=== PATIENT | male | born 1995 ===

== ENCOUNTER 2022-11-20 08:34 | Outpatient (CLI) | payer OTHER ==
[2022-11-20] MEDS ORDERED: GADOBUTROL 7.5 MMOL/7.5 ML VIAL ONE (08:41)
[2022-11-20] MEDS ORDERED: iohexoL-240 10 ML VIAL IVP ONE ×2 (08:41→10:24)
[2022-11-20] MEDS ORDERED: LIDOCAINE-MPF 1% 5 ML VIAL ONE (08:42)
[2022-11-20] MEDS ORDERED: GADOBUTROL 7.5 MMOL/7.5 ML VIAL IVP ONE (10:22)
[2022-11-20] MEDS ORDERED: LIDOCAINE-MPF 1% 5 ML VIAL SUBQ STA (10:25)
--- NOTE | 2022-11-20 10:54 | XRAY Report ---
PROCEDURE: Arthrogram Needle Placement INDICATIONS: DISLOCATION OF RIGHT SHOULDER FLUOROSCOPY TIME: 000.6 TECHNIQUE: The indications, alternatives, benefits, risks, and complications of the procedure were explained to the patient. Written informed consent was obtained and placed in the chart. The shoulder was examin ed fluoroscopically and a site for needle placement chosen for entry into the glenohumeral joint from an anterior approach. The skin was prepped and draped in the usual fashion, and 1% lidocaine infilt rated from skin down to joint capsule. A spinal needle was inserted into the glenohumeral joint, and a small amount of iodinated contrast media injected to confirm intra-articular placement of the need le tip. This was followed by approximately 12 mL dilute solution of a gadolinium containing MR contr ast agent. The needle was removed and a dressing was applied. The patient was given postprocedural instructions and sent to the MR suite for MR imaging. FINDINGS: A single fluoroscopic spot image demonstrates intra-articular location of injected iodinated contrast . IMPRESSION: Successful fluoroscopically guided administration of dilute Gadolinium solution into the shoulder gertrude murphy for MR arthrogram. Reviewed by: Darren Zaldivar MD on 11/20/2022 10:53 AM PDT Approved by: Darren Zaldivar MD on 11/20/2022 10:53 AM PDT Station ID: [id number]
--- NOTE | 2022-11-20 12:33 | MRI Report ---
PROCEDURE: ARTHROGRAM SHOULDER - RT INDICATIONS: DISLOCATION OF RIGHT SHOULDER TECHNIQUE: After the administration of 12 mL of dilute intra-articular Gadolinium contrast, oblique coronal T1 a nd T2 spin echo with fat saturation, oblique sagittal T1 spin echo with and without fat saturation, o blique sagittal T2 fast spin echo with fat saturation, axial T1 spin echo with fat saturation through the shoulder. COMPARISON: None. FINDINGS: Image quality: Excellent. Rotator cuff: The supraspinatus, infraspinatus, and subscapularis tendons appear intact throughout. No rotator cuff muscle atrophy on sagittal images. Bones and bursae: There is a reverse Hill-Sachs lesion the anteromedial aspect of the humeral head w ith associated subchondral edema, consistent with impaction injury. No acromioclavicular joint degene ration. The acromion demonstrates conventional anatomy, without an os acromiale. Capsule and soft tissues: There is tear of the posterior labrum. The glenohumeral ligaments appear i ntact. The long head of the biceps tendon demonstrates normal location and morphology. The rotator interval appears normal, without fibrosis. The coracohumeral ligament is of normal thickness. No in tra-articular bodies. IMPRESSION: 1. Reversed Hill-Sachs lesion in the anterior medial aspect of the humeral head. 2. Posterior labral tear. Reviewed by: Lake Denney MD on 11/20/2022 12:31 PM PDT Approved by: Lake Denney MD on 11/20/2022 12:31 PM PDT Station ID: [id number]
== END 2022-11-20 08:35 | disposition home or self-care (01) ==
LOC: DI 08:34
PROVIDERS: ATTEND Student in an Organized Health Care Education/Training Program
DX: S42.291A Other displaced fracture of upper end of right humerus, initial encounter for closed fracture (principal); S43.401A Unspecified sprain of right shoulder joint, initial encounter
CPT/HCPCS: 23350; 73222; 77002; A9585; Q9966

== ENCOUNTER 2022-12-03 16:24 | Outpatient (CLI) | payer OTHER ==
--- NOTE | 2022-12-04 09:40 | MRI Report ---
PROCEDURE: KNEE WO - RT INDICATIONS: RIGHT KNEE PAIN TECHNIQUE: Noncontrast sagittal PD fast spin echo and T2 fast spin echo with fat saturation, sagittal 3-D gradie nt sequence with fat saturation; coronal T1 spin echo and PD fast spin echo with fat saturation, and axial PD fast spin echo with fat saturation through the knee. COMPARISON: None. FINDINGS: Image quality: Excellent. Menisci: The medial and lateral menisci demonstrate normal morphology and internal signal. The meni scal root ligaments appear intact. Cruciate ligaments: The anterior and posterior cruciate ligaments appear intact. Medial structures: The medial collateral ligament appears intact. The posterior oblique ligament, s emimembranosus tendon insertions, and oblique popliteal ligament, and meniscocapsular junction appear intact. Visualized portions of the pes anserinus tendons appear normal. No abnormal bursal fluid. Lateral structures: The lateral collateral ligament, long and short heads of the biceps femoris tend on appear intact. The popliteus tendon appears normal; the popliteofibular ligament appears intact. The posterosuperior and anteroinferior popliteomeniscal fascicles appear intact. The arcuate and fa bellofibular ligaments appear intact, around the lateral inferior geniculate artery. Iliotibial band appears normal. Anterior structures: The quadriceps and patellar tendons appear intact. Patellar alignment is tavia l. No femoral trochlear dysplasia or ventral trochlear prominence. No edema in the infrapatellar fa t pad. Bones and cartilage: No bone marrow contusions or fractures. The cartilage of the medial and latera l femorotibial compartments, as well as the patellofemoral compartment, appears normal in thickness. Joint space: There is trace knee joint fluid. Small Babb's cyst. Normal appearing synovial plicae are incidentally noted. IMPRESSION: 1. No meniscal tear or cruciate ligament tear. 2. A small Babb's cyst. 3. Trace knee joint effusion. Reviewed by: Lake Denney MD on 12/04/2022 9:38 AM PDT Approved by: Lake Denney MD on 12/04/2022 9:38 AM PDT Station ID: [id number]
== END 2022-12-03 16:25 | disposition home or self-care (01) ==
LOC: DI 16:24
PROVIDERS: ATTEND Physician Assistant
DX: M25.561 Pain in right knee (principal); M71.21 Synovial cyst of popliteal space [Baker], right knee; M25.461 Effusion, right knee